=== PATIENT | male | born 1990 | race Caucasian/White ===

== ENCOUNTER 2024-12-16 10:10 | Emergency (ER) | payer MEDICAID ==
[~2024-12-16] VITALS: Ht 172.7 cm; Wt 82.0 kg
[2024-12-16 10:12] VITALS: O2SAT 96
[2024-12-16] MEDS: LIDOCAINE HCL/EPINEPHRINE 1%-EPI 1:100,000 20ML VIAL INFIL ONE (11:15)
[2024-12-16] MEDS: ACETAMINOPHEN 325MG TABLET PO ONE (11:34)
[2024-12-16] MEDS: KETOROLAC 30MG/ML VIAL IM ONE (11:34)
[2024-12-16] MEDS: TETANUS, DIPHTHERIA, PERTUSSIS VAC/PF 0.5ML (>10YR OLD) IM ONE (11:36)
[2024-12-16] MEDS: ONDANSETRON 4MG ODT PO ONE (11:58)
[2024-12-16] MEDS ORDERED: KETO10TA2 MT (13:34)
[2024-12-16 14:14] VITALS: BP 105/63; PULSE 96; RESP 12; TEMP 36.6; O2SAT 100
== END 2024-12-16 14:21 | disposition home or self-care (01) ==
LOC: ER 10:10
DX: S01.81XA Laceration without foreign body of other part of head, initial encounter (principal); M79.644 Pain in right finger(s); Z79.899 Other long term (current) drug therapy; Y08.89XA Assault by other specified means, initial encounter; Y93.89 Activity, other specified; Y92.89 Other specified places as the place of occurrence of the external cause; Y99.8 Other external cause status
CPT/HCPCS: 73130; 70450; 90715; 12013; 90471; 96372; 99285; Q0162; J1885; J2004; Z7610 ×3

== ENCOUNTER 2024-12-24 20:33 | Emergency (ER) | payer MEDICAID ==
[~2024-12-24] VITALS: Ht 180.3 cm; Wt 82.0 kg
[~2024-12-24 20:33] MED LIST: KETO10TA2 MT
[2024-12-24 20:38] VITALS: O2SAT 98
[2024-12-24 20:46] VITALS: BP 125/76; PULSE 94; RESP 18; TEMP 37; O2SAT 99
== END 2024-12-25 01:43 | disposition left against medical advice (07) ==
LOC: ER 20:33
DX: S01.81XD Laceration without foreign body of other part of head, subsequent encounter (principal); Z53.21 Procedure and treatment not carried out due to patient leaving prior to being seen by health care provider; X58.XXXD Exposure to other specified factors, subsequent encounter